=== PATIENT | male | born 1930 | race Caucasian/White ===

== ENCOUNTER 2017-01-09 19:40 | Inpatient (IN) | payer MEDICARE ==
[~2017-01-09] VITALS: Ht 185.4 cm; Wt 80.0 kg
[~2017-01-09 19:40] MED LIST: CARB1TAB44 PO; CARB200T4 PO; FINA5TAB4 PO; ROPI1TAB2 PO; TAMS0.4C2 PO
[2017-01-09 21:37] LABS: ASPARTATE AMINO TRANSFERASE 15 U/L (15-37); BLOOD UREA NITROGEN 32 mg/dL (7-18)
[2017-01-09 22:31] LABS: PATH.CAST-FLAG NOT PRESENT; SPERM-FLAG NOT PRESENT; SRC-FLAG NOT PRESENT; XTAL-FLAG NOT PRESENT; YLC-FLAG NOT PRESENT
[2017-01-09] MEDS ORDERED: SODIUM CHLORIDE 0.9% 1,000 ML IV ONE (22:58)
[2017-01-09] MEDS ORDERED: SODIUM CHLORIDE FLUSH 10ML SYR IVF ONE (23:00)
[2017-01-09] MEDS ORDERED: MYBETRIQ PO (23:06)
[2017-01-10] MEDS ORDERED: GLYCERIN ADULT SUPP PR PRN (00:30)
[2017-01-10 00:37] VITALS: BP 118/71
[2017-01-10] MEDS: SODIUM CHLORIDE 0.9% 1,000 ML IV SCH ×3 (00:50→18:34)
[2017-01-10] MEDS ORDERED: ONDANSETRON 2MG/ML, 2ML IVPush PRN (01:00)
[2017-01-10] MEDS ORDERED: PHARMACY MAY ADJ FOR RENAL FX MC PRN (01:00)
[2017-01-10] MEDS ORDERED: BISACODYL 10 MG SUPP PR PRN (01:00)
[2017-01-10] MEDS ORDERED: ACETAMINOPHEN 325 MG TABLET PO PRN (01:00)
[2017-01-10] MEDS ORDERED: PROMETHAZINE 25 MG/ML, 1ML IM PRN (01:00)
[2017-01-10] MEDS: POLYETHYLENE GLYCOL 17 GM PACKET PO PRN (01:17)
[2017-01-10] MEDS: DOCUSATE 100 MG CAPSULE PO PRN ×2 (01:17→21:22)
[2017-01-10] MEDS: CEFTRIAXONE 1,000 MG in SODIUM CHLORIDE 0.9% 50 ML IV SCH (01:17)
[2017-01-10 05:29] LABS: BLOOD UREA NITROGEN 29 mg/dL (7-18)
[2017-01-10] MEDS: ENOXAPARIN 40 MG/0.4 ML SQ SCH (06:07)
[2017-01-10] MEDS: CARBIDOPA/LEVODOPA CR 50 MG/200 MG TABLET PO SCH ×4 (06:07→21:22)
[2017-01-10] MEDS: ROPINIROLE 1MG TABLET PO SCH ×4 (06:07→21:21)
[2017-01-10 07:50] VITALS: BP 104/51
[2017-01-10] MEDS: CARBAMAZEPINE 200 MG TABLET PO SCH ×3 (09:06→21:22)
[2017-01-10] MEDS: SENNA/DOCUSATE TABLET PO SCH (09:06)
[2017-01-10] MEDS: FINASTERIDE 5 MG TABLET PO SCH (09:06)
[2017-01-10] MEDS ORDERED: PINK LADY ENEMA 1,000 ML PR ONE (14:00)
[2017-01-10 14:19] VITALS: BP 94/53
[2017-01-10] MEDS: MYBETRIQ 25 MG HOMEMEDPO SCH (16:30)
[2017-01-10 18:18] VITALS: BP 93/44
[2017-01-10] MEDS: TAMSULOSIN 0.4 MG CAP.ER.24H PO SCH (21:21)
[2017-01-11] MEDS: POLYETHYLENE GLYCOL 17 GM PACKET PO PRN (00:27)
[2017-01-11] MEDS: CEFTRIAXONE 1,000 MG in SODIUM CHLORIDE 0.9% 50 ML IV SCH (00:28)
[2017-01-11 00:42] VITALS: BP 98/58
[2017-01-11 06:26] VITALS: BP 97/57
[2017-01-11] MEDS: ROPINIROLE 1MG TABLET PO SCH ×4 (06:28→21:39)
[2017-01-11] MEDS: CARBIDOPA/LEVODOPA CR 50 MG/200 MG TABLET PO SCH ×4 (06:28→21:40)
[2017-01-11] MEDS: ENOXAPARIN 40 MG/0.4 ML SQ SCH (06:28)
[2017-01-11] MEDS: CARBAMAZEPINE 200 MG TABLET PO SCH ×4 (09:00→21:39)
[2017-01-11] MEDS ORDERED: PINK LADY ENEMA 1,000 ML PR ONE (10:30)
[2017-01-11] MEDS: SENNA/DOCUSATE TABLET PO SCH (11:47)
[2017-01-11] MEDS: FINASTERIDE 5 MG TABLET PO SCH (11:47)
[2017-01-11 12:15] VITALS: BP 127/63
[2017-01-11 13:31] LABS: DIFF TOTAL CELLS COUNTED 100 CELL DIFF
[2017-01-11 13:33] LABS: VERIFY COUNTS? YES
[2017-01-11] MEDS: SODIUM CHLORIDE 0.9% 1,000 ML IV SCH ×3 (15:00→21:40)
[2017-01-11] MEDS: MYBETRIQ 25 MG HOMEMEDPO SCH (16:49)
[2017-01-11 18:44] VITALS: BP 97/59
[2017-01-11] MEDS: TAMSULOSIN 0.4 MG CAP.ER.24H PO SCH (21:39)
[2017-01-12 01:34] VITALS: BP 98/60
[2017-01-12] MEDS: CEFTRIAXONE 1,000 MG in SODIUM CHLORIDE 0.9% 50 ML IV SCH (02:14)
[2017-01-12] MEDS: ROPINIROLE 1MG TABLET PO SCH ×4 (05:51→20:42)
[2017-01-12] MEDS: CARBIDOPA/LEVODOPA CR 50 MG/200 MG TABLET PO SCH ×4 (05:51→20:42)
[2017-01-12] MEDS: SODIUM CHLORIDE 0.9% 1,000 ML IV SCH ×2 (05:52→15:19)
[2017-01-12] MEDS: CARBAMAZEPINE 200 MG TABLET PO SCH ×4 (05:52→20:42)
[2017-01-12] MEDS: ENOXAPARIN 40 MG/0.4 ML SQ SCH (05:52)
[2017-01-12 06:44] VITALS: BP 108/69
[2017-01-12] MEDS: SENNA/DOCUSATE TABLET PO SCH (09:23)
[2017-01-12] MEDS: FINASTERIDE 5 MG TABLET PO SCH (09:23)
[2017-01-12 12:30] VITALS: BP 117/69
[2017-01-12] MEDS: MYBETRIQ 25 MG HOMEMEDPO SCH (16:31)
[2017-01-12 18:25] VITALS: BP 117/79
[2017-01-12] MEDS: TAMSULOSIN 0.4 MG CAP.ER.24H PO SCH (20:42)
[2017-01-13] MEDS: SODIUM CHLORIDE 0.9% 1,000 ML IV SCH ×2 (00:22→08:33)
[2017-01-13] MEDS: CEFTRIAXONE 1,000 MG in SODIUM CHLORIDE 0.9% 50 ML IV SCH (01:14)
[2017-01-13 02:08] VITALS: BP 122/75
[2017-01-13] MEDS: CARBIDOPA/LEVODOPA CR 50 MG/200 MG TABLET PO SCH ×2 (06:03→11:53)
[2017-01-13] MEDS: CARBAMAZEPINE 200 MG TABLET PO SCH ×2 (06:03→11:53)
[2017-01-13] MEDS: ENOXAPARIN 40 MG/0.4 ML SQ SCH (06:03)
[2017-01-13] MEDS: ROPINIROLE 1MG TABLET PO SCH ×2 (06:03→11:53)
[2017-01-13] MEDS: FINASTERIDE 5 MG TABLET PO SCH (08:34)
[2017-01-13] MEDS: SENNA/DOCUSATE TABLET PO SCH (08:34)
[2017-01-13 08:50] VITALS: BP 127/74
[2017-01-13] MEDS ORDERED: ERYT250T14 PO (08:54)
[2017-01-13 12:54] VITALS: BP 116/67
== END 2017-01-13 14:07 | disposition home health service (06) | DRG 725 ==
LOC: ED 23:08 → EDIP 23:09 → ED 23:15 → 3NE 01-10 00:22
PROVIDERS: ADMIT Internal Medicine; ATTEND Internal Medicine
PROC: 0T9B70Z Drainage of Bladder with Drainage Device, Via Natural or Artificial Opening (ICD-10-PCS; principal; 2017-01-09)
DX: N40.1 Benign prostatic hyperplasia with lower urinary tract symptoms (principal); G93.41 Metabolic encephalopathy; N13.8 Other obstructive and reflux uropathy; N10 Acute pyelonephritis; N17.8 Other acute kidney failure; D75.89 Other specified diseases of blood and blood-forming organs; G20 Parkinson's disease; G40.909 Epilepsy, unspecified, not intractable, without status epilepticus; K59.00 Constipation, unspecified; R33.8 Other retention of urine; Z90.49 Acquired absence of other specified parts of digestive tract; Z90.89 Acquired absence of other organs
CPT/HCPCS: 36415; 71010; 74020; 80048; 80053; 81001; 82607; 82746; 84443; 85025; 87086; 99285; J0696; J1650; J7030

== ENCOUNTER 2017-05-23 23:25 | Inpatient (IN) | payer MEDICARE ==
[~2017-05-23] VITALS: Ht 185.4 cm; Wt 80.6 kg
[~2017-05-23 23:25] MED LIST changes: +ERYT250T14 PO; +MYBETRIQ PO
[2017-05-23 23:48] LABS: HEMATOCRIT 40.3 % (39.2-51.8); HEMOGLOBIN 13.6 g/dL (13.7-18.0); WHITE BLOOD COUNT 6.3 x10^3/uL (3.4-10)
[2017-05-23] MEDS ORDERED: MIRA25TA PO (23:49)
[2017-05-23 23:59] LABS: ASPARTATE AMINO TRANSFERASE 15 U/L (15-37); BLOOD UREA NITROGEN 30 mg/dL (7-18)
[2017-05-24] MEDS ORDERED: morphine SULFATE 10 MG/ML, 1ML ONE (00:38)
[2017-05-24] MEDS ORDERED: ONDANSETRON 2MG/ML, 2ML ONE ×2 (00:38→20:07)
[2017-05-24] MEDS ORDERED: ONDANSETRON 2MG/ML, 2ML IVPush ONE (01:00)
[2017-05-24] MEDS ORDERED: morphine SULFATE 10 MG/ML, 1ML IVPush PRN (01:00)
[2017-05-24] MEDS ORDERED: ONDANSETRON 2MG/ML, 2ML IVPush PRN (01:30)
[2017-05-24] MEDS ORDERED: hydrALAzine 20 MG/ML, 1ML IVPush PRN (01:30)
[2017-05-24 01:43] VITALS: BP 99/60
[2017-05-24] MEDS: SODIUM CHLORIDE 0.9% 1,000 ML IV SCH ×3 (02:17→22:55)
[2017-05-24] MEDS: morphine SULFATE 10 MG/ML, 1ML IVPush PRN ×2 (03:43→15:41)
[2017-05-24] MEDS: CARBIDOPA/LEVODOPA CR 50 MG/200 MG TABLET PO SCH ×4 (06:31→23:06)
[2017-05-24] MEDS: ROPINIROLE 1MG TABLET PO SCH ×4 (06:31→23:06)
[2017-05-24] MEDS: LACTULOSE 10 GM/15 ML UDC PO SCH ×2 (09:00→23:15)
[2017-05-24] MEDS: Mirabegron** (Myrbetriq**) 25 MG) HOMEMEDPO SCH (09:21)
[2017-05-24] MEDS: CARBAMAZEPINE 200 MG TABLET PO SCH ×2 (10:13→23:12)
[2017-05-24] MEDS: FINASTERIDE 5 MG TABLET PO SCH (10:13)
[2017-05-24 10:29] VITALS: BP 110/68
[2017-05-24 13:09] VITALS: BP 100/61
[2017-05-24] MEDS ORDERED: FENTANYL PF 250 MCG/5ML ONE (18:01)
[2017-05-24] MEDS ORDERED: NEOSPORIN OINT, 15GM ONE (18:26)
[2017-05-24] MEDS ORDERED: TRANEXAMIC ACID 100 MG/ML, 10ML ONE (19:17)
[2017-05-24] MEDS ORDERED: METOPROLOL 1 MG/ML, 5ML IV PRN (19:30)
[2017-05-24] MEDS ORDERED: FENTANYL PF 100 MCG/2ML IV PRN (19:30)
[2017-05-24] MEDS ORDERED: HYDROmorphone 1 MG/ML, 1ML IV PRN (19:30)
[2017-05-24] MEDS ORDERED: ALBUTEROL SULFATE 2.5 MG/3 ML NPPB PRN (19:30)
[2017-05-24] MEDS ORDERED: HALOPERIDOL 5 MG/ML IV ONE (19:30)
[2017-05-24] MEDS ORDERED: OXYcodone 5 MG/5 ML ORAL.SOL UDC PO PRN (19:30)
[2017-05-24] MEDS ORDERED: PROMETHAZINE 25 MG/ML, 1ML IV PRN (19:30)
[2017-05-24] MEDS ORDERED: hydrALAzine 20 MG/ML, 1ML IV PRN (19:30)
[2017-05-24] MEDS ORDERED: ACETAMINOPHEN 325 MG TABLET PO PRN (19:30)
[2017-05-24] MEDS ORDERED: CEFAZOLIN 1,000 MG ONE (20:07)
[2017-05-24] MEDS ORDERED: PROPOFOL 10 MG/ML, 20ML ONE (20:07)
[2017-05-24] MEDS ORDERED: DEXAMETHASONE 4 MG/ML, 1ML ONE (20:07)
[2017-05-24] MEDS ORDERED: FENTANYL PF 100 MCG/2ML ONE (21:02)
[2017-05-24] MEDS ORDERED: OXYcodone 5 MG/5 ML ORAL.SOL UDC ONE (21:03)
[2017-05-24] MEDS ORDERED: HALOPERIDOL 5 MG/ML ONE (21:40)
[2017-05-24] MEDS: CEFAZOLIN PMX 1GM/50ML 50 ML IVPB SCH (23:02)
[2017-05-24] MEDS: TAMSULOSIN 0.4 MG CAP.ER.24H PO SCH (23:12)
[2017-05-25] MEDS: morphine SULFATE 10 MG/ML, 1ML IVPush PRN ×2 (01:24→04:06)
[2017-05-25] MEDS ORDERED: HALOPERIDOL 5 MG/ML IM PRN (02:00)
[2017-05-25 04:28] LABS: HEMATOCRIT 36.9 % (39.2-51.8); HEMOGLOBIN 12.6 g/dL (13.7-18.0); WHITE BLOOD COUNT 13.1 x10^3/uL (3.4-10)
[2017-05-25 04:42] LABS: BLOOD UREA NITROGEN 17 mg/dL (7-18)
[2017-05-25 05:15] VITALS: BP 98/47
[2017-05-25] MEDS: CEFAZOLIN PMX 1GM/50ML 50 ML IVPB SCH (05:27)
[2017-05-25] MEDS ORDERED: HALOPERIDOL 5 MG/ML IVPush PRN (06:00)
[2017-05-25] MEDS: ASPIRIN 325 MG TABLET EC PO SCH ×2 (06:28→16:19)
[2017-05-25] MEDS: ROPINIROLE 1MG TABLET PO SCH ×4 (06:28→21:00)
[2017-05-25] MEDS: CARBIDOPA/LEVODOPA CR 50 MG/200 MG TABLET PO SCH ×4 (06:28→21:00)
[2017-05-25] MEDS: Mirabegron** (Myrbetriq**) 25 MG) HOMEMEDPO SCH (09:35)
[2017-05-25] MEDS: KETOROLAC 30 MG/1 ML IVPush SCH ×3 (09:49→20:56)
[2017-05-25] MEDS: FINASTERIDE 5 MG TABLET PO SCH (09:53)
[2017-05-25] MEDS: LACTULOSE 10 GM/15 ML UDC PO SCH ×2 (09:53→21:00)
[2017-05-25] MEDS: CARBAMAZEPINE 200 MG TABLET PO SCH ×2 (09:54→21:00)
[2017-05-25] MEDS: SODIUM CHLORIDE 0.9% 1,000 ML IV SCH (13:07)
[2017-05-25] MEDS: TAMSULOSIN 0.4 MG CAP.ER.24H PO SCH (21:00)
[2017-05-26] MEDS: SODIUM CHLORIDE 0.9% 1,000 ML IV SCH ×2 (02:23→17:59)
[2017-05-26] MEDS: KETOROLAC 30 MG/1 ML IVPush SCH ×4 (03:00→22:19)
[2017-05-26 05:00] VITALS: BP 93/53
[2017-05-26] MEDS: ASPIRIN 325 MG TABLET EC PO SCH ×2 (05:56→17:59)
[2017-05-26] MEDS: ROPINIROLE 1MG TABLET PO SCH ×4 (05:57→22:19)
[2017-05-26] MEDS: CARBIDOPA/LEVODOPA CR 50 MG/200 MG TABLET PO SCH ×4 (05:59→22:20)
[2017-05-26] MEDS: Mirabegron** (Myrbetriq**) 25 MG) HOMEMEDPO SCH (09:00)
[2017-05-26] MEDS: CARBAMAZEPINE 200 MG TABLET PO SCH ×2 (09:49→22:20)
[2017-05-26] MEDS: LACTULOSE 10 GM/15 ML UDC PO SCH ×2 (09:49→22:19)
[2017-05-26] MEDS: FINASTERIDE 5 MG TABLET PO SCH (09:49)
[2017-05-26] MEDS ORDERED: TAMSULOSIN 0.4 MG CAP.ER.24H PO ONE (10:30)
[2017-05-26 15:15] VITALS: BP 103/64
[2017-05-26 19:31] VITALS: BP 84/51
[2017-05-26 19:45] VITALS: BP 96/57
[2017-05-26] MEDS: TAMSULOSIN 0.4 MG CAP.ER.24H PO SCH (22:19)
[2017-05-27 02:21] VITALS: BP 96/57
[2017-05-27 03:03] VITALS: BP 109/67
[2017-05-27] MEDS: KETOROLAC 30 MG/1 ML IVPush SCH ×3 (03:46→15:30)
[2017-05-27 04:53] LABS: HEMATOCRIT 30.4 % (39.2-51.8); HEMOGLOBIN 10.3 g/dL (13.7-18.0); WHITE BLOOD COUNT 10.1 x10^3/uL (3.4-10)
[2017-05-27 05:04] LABS: BLOOD UREA NITROGEN 29 mg/dL (7-18)
[2017-05-27 05:32] LABS: ASPARTATE AMINO TRANSFERASE 34 U/L (15-37)
[2017-05-27] MEDS: SODIUM CHLORIDE 0.9% 1,000 ML IV SCH (05:55)
[2017-05-27] MEDS: CARBIDOPA/LEVODOPA CR 50 MG/200 MG TABLET PO SCH ×3 (05:55→16:00)
[2017-05-27] MEDS: ROPINIROLE 1MG TABLET PO SCH ×3 (05:55→16:00)
[2017-05-27 06:40] VITALS: BP 100/62
[2017-05-27] MEDS: Mirabegron** (Myrbetriq**) 25 MG) HOMEMEDPO SCH (10:07)
[2017-05-27] MEDS: ASPIRIN 325 MG TABLET EC PO SCH (10:19)
[2017-05-27] MEDS: FINASTERIDE 5 MG TABLET PO SCH (10:19)
[2017-05-27] MEDS: CARBAMAZEPINE 200 MG TABLET PO SCH (10:20)
[2017-05-27] MEDS: LACTULOSE 10 GM/15 ML UDC PO SCH (10:21)
[2017-05-27] MEDS ORDERED: HYDR-3240 PO (12:15)
[2017-05-27 13:02] VITALS: BP 93/50
[2017-05-27] MEDS ORDERED: SODIUM CHLORIDE 0.9% 500 ML IV SCH (15:00)
== END 2017-05-27 17:20 | DRG 470 ==
LOC: ED 23:34 → EDIP 05-24 00:50 → SUATTDRO 05-24 01:02 → 4NOR 05-24 01:30 → CCU 05-24 22:04 → ICU 05-25 18:58 → 4NOR 05-26 15:09
PROVIDERS: ADMIT Hospitalist; ATTEND Hospitalist
PROC: 0SRR0J9 Replacement of Right Hip Joint, Femoral Surface with Synthetic Substitute, Cemented, Open Approach (ICD-10-PCS; principal; 2017-05-24 18:30)
DX: S72.001A Fracture of unspecified part of neck of right femur, initial encounter for closed fracture (principal); R06.03 Acute respiratory distress; J44.9 Chronic obstructive pulmonary disease, unspecified; G20 Parkinson's disease; D75.89 Other specified diseases of blood and blood-forming organs; D62 Acute posthemorrhagic anemia; Z96.641 Presence of right artificial hip joint; G40.909 Epilepsy, unspecified, not intractable, without status epilepticus; W01.0XXA Fall on same level from slipping, tripping and stumbling without subsequent striking against object, initial encounter; R33.8 Other retention of urine; N40.1 Benign prostatic hyperplasia with lower urinary tract symptoms; E55.9 Vitamin D deficiency, unspecified; K59.00 Constipation, unspecified; M40.202 Unspecified kyphosis, cervical region; Z90.49 Acquired absence of other specified parts of digestive tract; Z79.899 Other long term (current) drug therapy; R41.0 Disorientation, unspecified
CPT/HCPCS: 36415; 71010; 72170; 80048; 80053; 82306; 82607; 83735; 85025; 87081; 93005; 96374; 96375; C1713; J0690; J1100; J1885; J2405; J2704; J3010; C1762; C1776; J1630; J2270; J7030

== ENCOUNTER 2017-06-19 15:39 | Inpatient (IN) | payer MEDICARE ==
[~2017-06-19] VITALS: Ht 185.4 cm; Wt 80.0 kg
[~2017-06-19 15:39] MED LIST changes: +HYDR-3240 PO; +MIRA25TA PO
[2017-06-19] MEDS ORDERED: SODIUM CHLORIDE FLUSH 10ML SYR IVF ONE (16:00)
[2017-06-19] MEDS ORDERED: SODIUM CHLORIDE 0.9% 1,000ML IVBOLUS ONE ×2 (16:00→19:30)
[2017-06-19 16:31] LABS: HEMATOCRIT 41.4 % (39.2-51.8); HEMOGLOBIN 13.7 g/dL (13.7-18.0); WHITE BLOOD COUNT 17.6 x10^3/uL (3.4-10)
[2017-06-19 16:46] LABS: ASPARTATE AMINO TRANSFERASE 11 U/L (15-37); BLOOD UREA NITROGEN 47 mg/dL (7-18)
[2017-06-19 16:51] LABS: IS PT STATUS REG ER OR PRE ER? YES
[2017-06-19] MEDS ORDERED: PIPERACILLIN/TAZO/PMX 3.375GM 50 ML IV ONE (17:00)
[2017-06-19 17:06] LABS: DIFF TOTAL CELLS COUNTED 100 CELL DIFF
[2017-06-19 17:09] LABS: ANISOCYTOSIS 1+; POIKILOCYTOSIS 1+
[2017-06-19 17:11] LABS: VERIFY COUNTS? YES
[2017-06-19] MEDS ORDERED: PIPERACILLIN/TAZO/PMX 3.375GM 50 ML ONE (17:11)
[2017-06-19 17:12] LABS: ROULEAUX 1+; SMALL PLATELETS 1+
[2017-06-19] MEDS ORDERED: MIRA25TA PO (17:35)
[2017-06-19] MEDS ORDERED: BISM262T9 PO (17:35)
[2017-06-19] MEDS ORDERED: CARB200T13 PO (17:35)
[2017-06-19] MEDS ORDERED: NYST1000 PO (17:35)
[2017-06-19] MEDS ORDERED: IBUP-1221 PO (17:35)
[2017-06-19] MEDS ORDERED: PANT40TA3 PO (17:35)
[2017-06-19] MEDS ORDERED: METRONIDAZOLE PMX 500MG/100ML 100 ML IV ONE (18:30)
[2017-06-19] MEDS ORDERED: METRONIDAZOLE PMX 500MG/100ML 100 ML ONE (18:39)
[2017-06-19] MEDS ORDERED: NOREPINEPHRINE 4 MG in SODIUM CHLORIDE 0.9% 246 ML IV PRN ×2 (18:47→19:30)
[2017-06-19] MEDS ORDERED: PHARMACY MAY ADJ FOR RENAL FX MC PRN (19:30)
[2017-06-19] MEDS ORDERED: ONDANSETRON 2MG/ML, 2ML IVPB PRN (19:30)
[2017-06-19] MEDS ORDERED: SODIUM CHLORIDE 0.9%, 500ML IVBOLUS PRN ×2 (19:30)
[2017-06-19] MEDS ORDERED: PIPERACILLIN/TAZO/PMX 4.5GM 50 ML IVPB SCH ×2 (19:30→20:30)
[2017-06-19] MEDS ORDERED: ACETAMINOPHEN 650 MG/20.3 ML UDC PO PRN (19:30)
[2017-06-19] MEDS ORDERED: PANTOPRAZOLE 40 MG IV IV SCH (19:30)
[2017-06-19] MEDS ORDERED: VANCOMYCIN PER PHARMACY MC PRN (19:30)
[2017-06-19] MEDS ORDERED: PANTOPRAZOLE 40 MG IV ONE (19:40)
[2017-06-19 20:20] VITALS: BP 81/45
[2017-06-19] MEDS ORDERED: PHARMACOKINETIC CONSULTATION MC ONE (20:30)
[2017-06-19] MEDS ORDERED: PHARMACOKINETIC MONITORING MC PRN (20:30)
[2017-06-19] MEDS ORDERED: VANCOMYCIN 1,400 MG in SODIUM CHLORIDE 0.9% 250 ML IV ONE (21:00)
[2017-06-19] MEDS ORDERED: NOREPINEPHRINE 8 MG in SODIUM CHLORIDE 0.9% 242 ML IV PRN (21:30)
[2017-06-19] MEDS ORDERED: morphine SULFATE 125 MG in SODIUM CHLORIDE 0.9% 237.5 ML IV PRN (21:45)
[2017-06-19] MEDS ORDERED: LORazepam 2 MG/ML, 1ML IVPush PRN (22:00)
[2017-06-19] MEDS ORDERED: SCOPOLAMINE PATCH, 1.5MG PATCH.TD72 TD PRN (22:00)
== END 2017-06-20 01:02 | disposition expired | DRG 871 ==
LOC: ED 18:44 → SUATTDRO 19:22 → EDIP 19:30 → ICU 20:08
PROVIDERS: ADMIT Family Medicine; ATTEND Family Medicine
PROC: 02HV33Z Insertion of Infusion Device into Superior Vena Cava, Percutaneous Approach (ICD-10-PCS; principal; 2017-06-19)
PROC: B548ZZA Ultrasonography of Superior Vena Cava, Guidance (ICD-10-PCS; 2017-06-19)
PROC: 0T9B70Z Drainage of Bladder with Drainage Device, Via Natural or Artificial Opening (ICD-10-PCS; 2017-06-19)
DX: A41.9 Sepsis, unspecified organism (principal); G93.41 Metabolic encephalopathy; J96.00 Acute respiratory failure, unspecified whether with hypoxia or hypercapnia; N17.0 Acute kidney failure with tubular necrosis; K55.069 Acute infarction of intestine, part and extent unspecified; R65.21 Severe sepsis with septic shock; K56.600 Partial intestinal obstruction, unspecified as to cause; J15.9 Unspecified bacterial pneumonia; G20 Parkinson's disease; N12 Tubulo-interstitial nephritis, not specified as acute or chronic; G40.909 Epilepsy, unspecified, not intractable, without status epilepticus; K21.9 Gastro-esophageal reflux disease without esophagitis; N40.1 Benign prostatic hyperplasia with lower urinary tract symptoms; Z66 Do not resuscitate; Z82.0 Family history of epilepsy and other diseases of the nervous system; Z51.5 Encounter for palliative care
CPT/HCPCS: 36415; 36569; 71010; 74176; 76937; 77001; 80053; 81001; 83605; 84145; 84484; 85025; 85610; 87040; 87077; 87081; 87086; 87186; 93005; 96361; 96365; 96367; 96375; J2543; J3370; C1751; C9113; J2270; J7030; J7050